=== PATIENT | male | born 1985 | race Caucasian/White ===

== ENCOUNTER 2018-04-10 16:02 | Emergency (ER) | payer MEDICAID ==
[~2018-04-10] VITALS: Ht 185.4 cm; Wt 86.4 kg
[2018-04-10] MEDS ORDERED: POVIDONE-IODINE 10% 15 ML SOLUTION UD TP ONE (17:15)
[2018-04-10] MEDS ORDERED: BUPIVACAINE HCL 0.25% 50 ML VIAL SQ ONE (17:15)
[2018-04-10] MEDS ORDERED: OxyCODONE HCL/ACETAMINOPHEN 5-325 MG TABLET PO ONE (17:15)
[2018-04-10] MEDS ORDERED: BACITRACIN 0.9 GM PACKET OINTMENT TP ONE (19:30)
[2018-04-10] MEDS ORDERED: PERTUSS(ACELL),DIPH,TET VAC/PF 0.5 ML VIAL IM ONE (19:45)
[2018-04-10 20:00] VITALS: BP 115/62
== END 2018-04-10 20:14 | disposition home or self-care (01) ==
LOC: EMS 16:03
DX: S91.012A Laceration without foreign body, left ankle, initial encounter (principal); W26.8XXA Contact with other sharp object(s), not elsewhere classified, initial encounter; Y93.H9 Activity, other involving exterior property and land maintenance, building and construction; Y92.096 Garden or yard of other non-institutional residence as the place of occurrence of the external cause; Y99.0 Civilian activity done for income or pay
CPT/HCPCS: 12002; 73610; 90471; 90715; 99284; J3490